=== PATIENT | male | born 1985 | race Caucasian/White ===

== ENCOUNTER 2023-07-28 16:54 | Emergency (ER) | payer BC, SELFPAY ==
--- NOTE | ~2023-07-28 | XR_ITS ---
EXAM: XR ankle RT min 3V DATE: 07/28/2023 17:15 HISTORY: fell playing hockey and twisted right ankle . COMPARISON: None available. FINDINGS: Normal mineralization. Distracted and laterally displaced avulsion fracture off the tip of the medial malleolus. Significant medial gutter widening. Widening of the syndesmosis. Lateral displ acement of the talus relative to the tibial plafond. Achilles enthesopathy. Ankle joint effusion. Sof t tissue swelling about the ankle IMPRESSION: Laterally displaced and distracted small medial malleolar avulsion fracture. Lateral subl uxation of the talus relative to the tibial performed. Syndesmotic injury. Reviewed, dictated and finalized at location K. IMPRESSION: Laterally displaced and distracted small medial malleolar avulsion fracture. Lateral subluxation of the talus relative to the tibial performed. Sy ndesmotic injury.
--- NOTE | 2023-07-28 17:03 | ED.GENADULT ---
HPI - General Adult General Chief complaint: Extremity Injury, Lower Stated complaint: INJURED R ANKLE Source: patient, RN notes reviewed and old records reviewed Mode of arrival: ambulatory Limitations: no limitations History of Present Illness HPI narrative: 37-year-old male patient [facility] with complaint right ankle pain this started Yesterday after patient rolled ankle while skating. Patient with noted bruising to medial malleolus. Is draining any treatments at home. Patient did present to [facility] using crutches. Patient denies any injuries. Related Data Home Medications Medication Instructions Recorded Confirmed No Home Medications 07/28/23 07/28/23 Allergies Allergy/AdvReac Type Severity Reaction Status Date / Time No Known Allergies Allergy Verified 07/28/23 17:14 Review of Systems Constitutional: Constitutional: Reports no additional constitutional complaints, Denies body ache(s), Denies chills, Denies fatigue, Denies fever(s) and Denies headache(s) Eyes: Eyes: Reports no additional eye complaints and Denies blurry vision ENT: Reports system reviewed and no additional complaints, except as documented, Denies vertigo, Denies dizziness, Denies ear discharge, Denies otalgia, Denies facial pain, Denies headache(s), Denies nasal congestion, Denies nasal discharge, Denies sinus pain, Denies sinus pressure and Denies sore throat Cardiovascular: Cardiovascular: Reports no additional cardiovascular complaints, Denies chest pain, Denies chest pain at rest, Denies rapid heart rate and Denies dyspnea Respiratory: Respiratory: Reports no additional respiratory complaints, Denies chest congestion, Denies cough, Denies pain on inspiration, Denies pain with cough and Denies dyspnea Gastrointestinal: Gastrointestinal: Denies abdominal pain, Denies diarrhea, Denies nausea and Denies vomiting Musculoskeletal: Musculoskeletal: Reports as per HPI Comments: Right ankle pain, swelling, bruising. Integumentary/Breasts: Skin/Breast: Denies rash Neurologic: Reports system reviewed and no additional complaints, except as documented, Denies vertigo, Denies dizziness and Denies headache(s) Endocrine: Endocrine: Denies fatigue PMFSH Comments At the time of my signature, I reviewed and agree with the nursing past medical, surgical, social, and family history. There is no relevant family history pertinent to the patient complaint. Exam Const: General: cooperative, healthy appearing, no acute distress and well nourished Nutritional Appearance: well nourished Orientation/consciousness: patient oriented x3 Limitations: no limitations HENMT: Head: normal to inspection and normocephalic Ears: external ears normal Face/Nose/Sinus: normal facial exam Face and sinus: normal facial exam Mouth: Yes Normal oral and palatal mucosa present, Yes oropharynx normal and Yes moist mucous membranes Eyes: General: appearance normal, both eyes and all related structures Sclera: sclerae normal Pupils: Equal, round and reactive pupils present Resp: Effort & Inspection: normal respiratory effort, able to speak in complete sentences, no audible wheezes, no cough, no respiratory distress and no retractions Skin: General skin exam: normal color and no rashes or lesions noted Neuro: General: patient oriented x3 Cranial nerves: Yes Equal, round and reactive pupils present Extrem: Right lower extremity: lower leg Details: tenderness, localized swelling Location: of the distal lower leg, non-pitting edema and ecchymosis; no crepitus, no foreign bodies, no penetrating wound, no deformity and no unusual warmth, ankle Details: tenderness Location: of the medial malleolus, swelling Details: medially, abnormal ROM and ecchymosis ( Medial malleolus around to back of ankle); no unusual warmth, no foreign bodies and no penetrating wound and foot Details: normal capillary refill, normal to inspection and vascular exam Details: dorsal
[2023-07-28 17:17] VITALS: BP 128/84; PULSE 92; RESP 16; TEMP 37.1; O2SAT 100
== END 2023-07-28 18:50 | disposition home or self-care (01) ==
PROVIDERS: Emergency Provider Registered Nurse; PCP Internal Medicine
DX: S92.121A Displaced fracture of body of right talus, initial encounter for closed fracture (principal); X50.9XXA Other and unspecified overexertion or strenuous movements or postures, initial encounter; S82.61XA Displaced fracture of lateral malleolus of right fibula, initial encounter for closed fracture
CPT/HCPCS: 29515; 73610; 99204; G0463